=== PATIENT | female | born 1995 | race American Indian/Alaskan Native ===

== ENCOUNTER 2017-02-12 10:47 | Emergency (ER) | payer SELFPAY ==
[2017-02-12 10:58] VITALS: BP 100/65
--- NOTE | 2017-02-12 11:32 | Emergency Department Report ---
ED Lower Extremity HPI - General Chief Complaint: Extremity Injury, Lower Stated Complaint: LT TOE PAIN Time Seen by Provider: 02/12/17 11:18 Source: patient Mode of arrival: Ambulatory Limitations: No Limitations - History of Present Illness Initial Comments: right great toe pain and drainage x 1 week, symptoms improved with manual expression of pus, some redness now. MD Complaint: foot injury, other (toe abscess ) Onset/Timin -: week(s) Injury: Toes: Right (right great toe ) Type of Injury: other (abscess ) Place: home Severity: mild Severity scale (0 -10): 2 Improves With: nothing Worsens With: palpation Context: other (abscess toe ) Associated Symptoms: ambulatory. denies: snap/pop sensation, swelling, numbness , tingling Treatments Prior to Arrival: other (manually reduces with pen and maual expression of abcess /pus ) - Related Data Previous Rx's Medication Instructions Recorded Last Taken Type Acetaminophen [Acetaminophen ER 650 mg PO QID PRN #60 tablet.er 02/12/17 Unknown Rx TAB] Cephalexin [Keflex] 500 mg PO Q8HR #30 cap 02/12/17 Unknown Rx Allergies Allergy/AdvReac Type Severity Reaction Status Date / Time No Known Allergies Allergy Unverified 02/12/17 10:54 ED Review of Systems ROS: Stated complaint: LT TOE PAIN Other details as noted in HPI Constitutional: denies: chills, fever Eyes: denies: eye pain, eye discharge, vision change ENT: denies: ear pain, throat pain Respiratory: denies: cough, shortness of breath, wheezing Cardiovascular: denies: chest pain, palpitations Endocrine: no symptoms reported Gastrointestinal: denies: abdominal pain, nausea, diarrhea Genitourinary: denies: urgency, dysuria, discharge Musculoskeletal: denies: back pain, joint swelling, arthralgia Skin: change in hair/nails (abcess right great toe ) Neurological: denies: headache, weakness, paresthesias Psychiatric: denies: anxiety, depression Hematological/Lymphatic: as per HPI ED Past Medical Hx - Past Medical History Previous Medical History?: No - Surgical History Past Surgical History?: No - Social History Smoking Status: Never Smoker Substance Use Type: None - Medications Home Medications: Home Medications Medication Instructions Recorded Confirmed Last Taken Type Acetaminophen [Acetaminophen ER 650 mg PO QID PRN #60 tablet.er 02/12/17 Unknown Rx TAB] Cephalexin [Keflex] 500 mg PO Q8HR #30 cap 02/12/17 Unknown Rx ED Physical Exam - General Limitations: No Limitations General appearance: alert, in no apparent distress - Head Head exam: Present: atraumatic, normocephalic - Eye Eye exam: Present: normal appearance - ENT ENT exam: Present: mucous membranes moist - Neck Neck exam: Present: normal inspection - Respiratory Respiratory exam: Present: normal lung sounds bilaterally. Absent: respiratory distress - Cardiovascular Cardiovascular Exam: Present: regular rate, normal rhythm. Absent: systolic murmur, diastolic murmur, rubs, gallop - GI/Abdominal GI/Abdominal exam: Present: soft, normal bowel sounds - Rectal Rectal exam: Present: deferred - Extremities Exam Extremities exam: Present: normal inspection - Back Exam Back exam: Present: normal inspection - Neurological Exam Neurological exam: Present: alert, oriented X3 - Psychiatric Psychiatric exam: Present: normal affect, normal mood - Skin Skin exam: Present: warm, dry, erythema, other (small abscess reduce no paronchia right great toe ) ED Course Vital Signs 02/12/17 10:54 Temperature 98.7 F Pulse Rate 79 Respiratory 18 Rate Blood Pressure 100/65 O2 Sat by Pulse 100 Oximetry ED Lower Extremity MDM - Medical Decision Making pt is a 21 y/o aaf lactating who presents for right great toe abscess x 1 week pt avises that " I popped it and go some pus out and i fells better now" exam mild erythea no paronychia no drainage mild pain with palptaion , pt refuses further I&D, there is no ingrown toe nail 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 Critical care attestation.: If time is entered above; I have spent that time in minutes in the direct care of this critically ill patient, excluding procedure time. ED Disposition Clinical Impression: Abscess of toe, right, Cellulitis of toe, right Disposition: TO HOME OR SELFCARE Is pt being admited?: No Does the pt Need Aspirin: No Condition: Good Instructions: Cellulitis (ED), Abscess (ED) Prescriptions: Acetaminophen [Acetaminophen ER TAB] 650 mg PO QID PRN #60 tablet.er PRN Reason: Pain Cephalexin [Keflex] 500 mg PO Q8HR #30 cap Referrals: PRIMARY CARE, [Primary Care Provider] - 3-5 Days Time of Disposition: 11:42
== END 2017-02-12 11:47 | disposition home or self-care (01) ==
LOC: ED 10:47
DX: L03.031 Cellulitis of right toe (principal); L02.611 Cutaneous abscess of right foot
CPT/HCPCS: 99282